=== PATIENT | male | born 1970 | race Caucasian/White ===

== ENCOUNTER 2022-11-25 10:53 | Day surgery (SDC) | payer MEDICARE ==
[2022-11-25] VITALS (16 sets, daily range): BP systolic 132–166; BP diastolic 92–121
[~2022-11-25] VITALS: Ht 182.9 cm; Wt 95.9 kg
--- NOTE | 2022-11-25 12:09 | NUR ---
Lungs clear T/O to Auscultation. History, Chart, Medications and Allergies reviewed before start of procedure. Pre-Op teaching done. Pt verbalizes understanding.
--- NOTE | 2022-11-25 13:35 | NUR ---
PT GLASSES GIVEN TO FOR SAFEKEEPING.
--- NOTE | 2022-11-25 13:35 | NUR ---
DR LUCERO AT BEDSIDE TO PERFORM NERVE BLOCK APPROX [id number]. TIMOUT COMPLETE BY MARTA MORENO. PT TOLERATED WELL. DR LUCERO LEFT BEDSIDE APPROX [id number].
--- NOTE | 2022-11-25 16:07 | NUR ---
INTO STEP. S/P ORIF TO RIGHT ANKLE. PT APPEARS ANXIOUS. HE REPORTS 9/10 PAIN DESPITE BEING MEDICATED WITH A TOTAL OF 200 MCG OF FENTANYL IN THE PACU. PT DENIES NAUSEA AND IS TOLERATING PO FLUIDS WELL. RIGHT LOWER EXTREMITY WITH SPLINT AND LIONEL WRAP C/D/I-GOOD CAPILLARY REFILL.
--- NOTE | 2022-11-25 17:00 | NUR ---
PT CONTINUES TO REPORT 10/10 RIGHT LOWER EXTREMITY PAIN-DESPITE MEDICATING WITH BOTH DILAUDID AND PERCOCET. WILL UPDATE DR. LUCERO.
--- NOTE | 2022-11-25 17:20 | NUR ---
DR. LUCERO MADE AWARE THAT PT PAIN LEVEL REMAINS 10/10. ORDER GIVEN FOR DILAUDID 1 MG IVP X 1 AND REPEAT PERCOCET 1 TAB-SEE EMAR. CONFIRMED THAT PT RX FOR PERCOCED HAS BEEN SENT TO [facility] AND WILL BE READY @ 1830.
--- NOTE | 2022-11-25 17:59 | NUR ---
DR. LUCERO BY TO SEE PT. UPDATE GIVEN. PT REPORTS PAIN 10/23. DISCHARGE INSTRUCTIONS REVIEWED.
--- NOTE | 2022-11-25 18:00 | NUR ---
PT DISCHARGED TO HOME. OUT VIA WHEELCHAIR WITH RX, DISCHARGE INSTRUCTIONS,AND BELONGINGS ON HAND.
== END 2022-11-25 18:00 | disposition home or self-care (01) ==
LOC: ORSCMMR 10:53
PROVIDERS: Orthopaedic Surgery
PROC: 0QSJ04Z Reposition Right Fibula with Internal Fixation Device, Open Approach (ICD-10-PCS; principal; 2022-11-25 12:30)
PROC: 0QSG04Z Reposition Right Tibia with Internal Fixation Device, Open Approach (ICD-10-PCS; principal; 2022-11-25 12:30)
DX: S82.51XA Displaced fracture of medial malleolus of right tibia, initial encounter for closed fracture (principal); S82.401A Unspecified fracture of shaft of right fibula, initial encounter for closed fracture; X58.XXXA Exposure to other specified factors, initial encounter
CPT/HCPCS: A9270; C1713; C1769; J0690; J1100; J1170; J1885; J2250; J2405; J2704; J3010; J7120